=== PATIENT | male | born 1950 | race Caucasian/White ===

== ENCOUNTER 2020-07-19 09:29 | Day surgery (SDC) | payer OTHER, BC ==
[2020-07-17 15:33] VITALS: BMI 22.3
[2020-07-19] MEDS ORDERED: CARBACHOL 0.01% INTRA-OCULAR 1.5 ML VIAL ONE (09:39)
[2020-07-19] MEDS ORDERED: BSS (NA/CA/MG/K) BALANCED SALT SOLUTION OPHTH SOLN 15 ML BOTTLE ONE (09:39)
[2020-07-19] MEDS ORDERED: LIDOCAINE 1% P/F 10 MG/ML VIAL ONE (09:39)
[2020-07-19] MEDS ORDERED: NEO/POLYMYX B SULF/DEXAMETH OPHTHALMIC 5ML BOTTLE ONE (09:39)
[2020-07-19] MEDS ORDERED: TETRACAINE 0.5% OPHTH SOLN 2 ML BOTTLE ONE (09:39)
[2020-07-19] MEDS: CYCLOPENTOLATE 2% OPHTH SOLN 2 ML BOTTLE ONE ×3 (10:25→10:35)
[2020-07-19] MEDS: PHENYLEPHRINE 2.5% OPHTH SOLN 15 ML BOTTLE ONE ×3 (10:25→10:35)
[2020-07-19] MEDS: CIPROFLOXACIN 0.3% EYE DROPS 5 ML BOTTLE ONE ×3 (10:25→10:35)
[2020-07-19] MEDS: TROPICAMIDE 1% OPHTH SOLN 15 ML BOTTLE ONE ×3 (10:25→10:35)
[2020-07-19] MEDS ORDERED: TRYPAN BLUE 0.5 ML DISP.SYRIN ONE (11:23)
[2020-07-19] MEDS ORDERED: MIDAZOLAM HCL 2 MG/2 ML SINGLE DOSE VIAL ONE (11:35)
[2020-07-19 13:02] VITALS: TEMP 98.6
[2020-07-19 13:04] VITALS: BP 142/80; PULSE 78
== END 2020-07-19 12:55 | disposition home or self-care (01) ==
LOC: FASU 09:29
PROVIDERS: ATTEND Ophthalmology
PROC: 08NC3ZZ Release Right Iris, Percutaneous Approach (ICD-10-PCS; 2020-07-19)
PROC: 08RJ3JZ Replacement of Right Lens with Synthetic Substitute, Percutaneous Approach (ICD-10-PCS; principal; 2020-07-19 11:43)
DX: H26.9 Unspecified cataract (principal); H21.541 Posterior synechiae (iris), right eye
CPT/HCPCS: 65875; 66982; V2631

== ENCOUNTER 2023-09-04 13:59 | Inpatient (IN) | payer OTHER, BC ==
[2023-09-04] MEDS ORDERED: dilTIAZem HCL 50 MG/10 ML - 10 ML VIAL IVPUSH ONE (16:42)
[2023-09-04 17:07] LABS: BASO % 0.6 % (0-2.0); HEMOGLOBIN 10.6 GM/dL (11.7-16.9); MCH 30.3 pg (25.7-33.7); MCHC 33.2 g/dl (32.0-35.9); MEAN CELL VOLUME 91.5 fl (80-96); MEAN PLT VOLUME 7.1 fl (7.5-11.1); MONO % 7.9 % (3.8-10.2); NEUT % 77.5 % (42.8-82.8); PLATELET COUNT 276 10^3/uL (134-434); RDW 15.8 % (11.9-15.9); WHITE BLOOD COUNT 6.2 K/mm3 (4.0-10.0)
[2023-09-04] MEDS ORDERED: AMPICILLIN NA/SULBACTAM NA 3 GM VIAL ONE (17:18)
[2023-09-04] MEDS ORDERED: dilTIAZem HCL 125 MG/25 ML - 25 ML VIAL ONE (17:19)
[2023-09-04 17:32] LABS: INR 1.43 (0.83-1.09); PROTHROMBIN TIME (PATIENT) 16.5 SEC (9.7-13.0)
[2023-09-04 17:34] LABS: ACTIVATED PTT 24.9 SECONDS (25.2-36.5)
[2023-09-04 17:39] LABS: ALBUMIN 2.3 g/dl (3.4-5.0); CALCIUM 8.1 mg/dL (8.5-10.1)
[2023-09-04 17:40] LABS: BLOOD UREA NITROGEN 14.3 mg/dL (7-18)
[2023-09-04 17:42] LABS: CREATININE 1.1 mg/dL (0.55-1.3)
[2023-09-04 17:44] LABS: BILIRUBIN,TOTAL 0.3 mg/dL (0.2-1); TOT PROT 6.3 g/dl (6.4-8.2)
[2023-09-04] MEDS ORDERED: POTASSIUM CHLORIDE TABS 20 MEQ TABLET.ER (FP) PO ONE ×2 (17:46→18:06)
[2023-09-04] MEDS ORDERED: AMPICILLIN NA/SULBACTAM NA 3 GM in SODIUM CHLORIDE 100 ML IVPB ONE (18:00)
[2023-09-04] MEDS ORDERED: dilTIAZem HCL 60 MG TABLET ONE (18:06)
[2023-09-04] MEDS ORDERED: KCL 10 MEQ IVPB 30 MEQ/300 ML INFUS.BAG IVPB ONE (18:06)
[2023-09-04] MEDS ORDERED: POTASSIUM CHLORIDE ORAL LIQUID 20 MEQ/15 ML PO ONE (18:28)
[2023-09-04] MEDS ORDERED: POTASSIUM CHLORIDE ORAL LIQUID 20 MEQ/15 ML ONE (18:29)
[2023-09-04] MEDS: KCL 10 MEQ IVPB 10 MEQ/100 ML INFUS.BAG IVPB SCH ×2 (18:39→23:08)
[2023-09-04 19:33] LABS: PH,URINE 6.5 (5.0-8.0); URINE APPEARANCE CLEAR; URINE BILIRUBIN NEGATIVE (NEGATIVE); URINE COLOR YELLOW; URINE GLUCOSE (UA) NEGATIVE (NEGATIVE); URINE KETONE TRACE (NEGATIVE); URINE LEUK ESTERASE NEGATIVE (NEGATIVE); URINE NITRITE NEGATIVE (NEGATIVE); URINE PROTEIN TRACE (NEGATIVE)
[2023-09-04] MEDS ORDERED: dilTIAZem HCL 60 MG TABLET PO SCH (22:45)
[2023-09-04] MEDS ORDERED: dilTIAZem HCL 50 MG/10 ML - 10 ML VIAL IVPUSH PRN (22:45)
[2023-09-04] MEDS ORDERED: CARVEDILOL 3.125 MG TABLET (FP) PO SCH (23:00)
[2023-09-05] MEDS ORDERED: AMPICILLIN NA/SULBACTAM NA 3 GM in SODIUM CHLORIDE 100 ML IVPB SCH
[2023-09-05] MEDS: KCL 10 MEQ IVPB 10 MEQ/100 ML INFUS.BAG IVPB SCH (00:15)
[2023-09-05] MEDS: APIXABAN 5 MG TABLET PO SCH ×3 (00:58→21:27)
[2023-09-05 02:54] VITALS: BMI 22.3
[2023-09-05] MEDS: AMPICILLIN NA/SULBACTAM NA 3 GM in SODIUM CHLORIDE 100 ML IVPB SCH ×4 (03:34→21:26)
[2023-09-05 07:30] LABS: HEMATOCRIT 27.3 % (35.4-49); HEMOGLOBIN 9.1 GM/dL (11.7-16.9); MCH 30.9 pg (25.7-33.7); MCHC 33.5 g/dl (32.0-35.9); MEAN CELL VOLUME 92.3 fl (80-96); MEAN PLT VOLUME 7.7 fl (7.5-11.1); PLATELET COUNT 243 10^3/uL (134-434); RBC 2.95 M/mm3 (4.00-5.60); RDW 15.9 % (11.9-15.9); WHITE BLOOD COUNT 5.6 K/mm3 (4.0-10.0)
[2023-09-05 07:47] LABS: POTASSIUM 3.2 mmol/L (3.5-5.1)
[2023-09-05] MEDS ORDERED: POTASSIUM CHLORIDE ORAL LIQUID 20 MEQ/15 ML PO ONE (07:53)
[2023-09-05 08:19] LABS: CALCIUM 7.9 mg/dL (8.5-10.1)
[2023-09-05 08:20] LABS: ALBUMIN 1.9 g/dl (3.4-5.0); BLOOD UREA NITROGEN 10.8 mg/dL (7-18); MAGNESIUM 1.8 mg/dL (1.8-2.4)
[2023-09-05 08:21] LABS: CHOLESTEROL 110 mg/dL (50-200)
[2023-09-05 08:22] LABS: LDL CHOLESTEROL (ONLY SJRH) 64 mg/dL (5-100)
[2023-09-05 08:23] LABS: CREATININE 0.9 mg/dL (0.55-1.3); PHOSPHOROUS 2.3 mg/dL (2.5-4.9)
[2023-09-05 08:24] LABS: HDL CHOLESTEROL 36 mg/dL (40-60); TOT PROT 5.4 g/dl (6.4-8.2)
[2023-09-05 08:25] LABS: BILIRUBIN,TOTAL 0.3 mg/dL (0.2-1)
[2023-09-05] MEDS ORDERED: FUROSEMIDE 40 MG/4 ML INJECTABLE VIAL IVPUSH ONE (09:55)
[2023-09-05] MEDS ORDERED: dilTIAZem HCL 30 MG TABLET PO SCH (12:00)
[2023-09-05] MEDS: ROSUVASTATIN CA 10 MG TABLET PO SCH (21:27)
[2023-09-06] MEDS: AMPICILLIN NA/SULBACTAM NA 3 GM in SODIUM CHLORIDE 100 ML IVPB SCH ×4 (04:13→21:15)
[2023-09-06] MEDS ORDERED: METOPROLOL TARTRATE 5 MG/5 ML VIAL IVPUSH ONE (05:34)
[2023-09-06 07:26] LABS: BASO % 0.9 % (0-2.0); EOS % 4.8 % (0-4.5); HEMATOCRIT 28.1 % (35.4-49); HEMOGLOBIN 9.5 GM/dL (11.7-16.9); LYMPH % 12.2 % (8-40); MCH 31.1 pg (25.7-33.7); MCHC 33.7 g/dl (32.0-35.9); MEAN CELL VOLUME 92.2 fl (80-96); MEAN PLT VOLUME 7.5 fl (7.5-11.1); MONO % 11.2 % (3.8-10.2); NEUT % 70.9 % (42.8-82.8); PLATELET COUNT 257 10^3/uL (134-434); RBC 3.04 M/mm3 (4.00-5.60); WHITE BLOOD COUNT 6.6 K/mm3 (4.0-10.0)
[2023-09-06 07:35] LABS: POTASSIUM 3.2 mmol/L (3.5-5.1)
[2023-09-06 07:40] LABS: BLOOD UREA NITROGEN 17.2 mg/dL (7-18); CALCIUM 8.1 mg/dL (8.5-10.1); MAGNESIUM 1.7 mg/dL (1.8-2.4)
[2023-09-06 07:43] LABS: CREATININE 1.1 mg/dL (0.55-1.3); PHOSPHOROUS 2.7 mg/dL (2.5-4.9)
[2023-09-06 07:45] LABS: TOT PROT 5.4 g/dl (6.4-8.2)
[2023-09-06 08:26] LABS: BILIRUBIN,TOTAL 0.3 mg/dL (0.2-1)
[2023-09-06] MEDS: APIXABAN 5 MG TABLET PO SCH ×2 (09:33→21:16)
[2023-09-06] MEDS ORDERED: FUROSEMIDE 40 MG/4 ML INJECTABLE VIAL IVPUSH SCH (10:00)
[2023-09-06] MEDS ORDERED: metoPROLOL SUCCINATE 25 MG TAB.SR.24H (FP) PO ONE (11:15)
[2023-09-06] MEDS ORDERED: DIGOXIN 0.25 MG TABLET PO ONE (11:15)
[2023-09-06] MEDS: POLYETHYLENE GLYCOL (HEALTHYLAX) 3350 17 GM PACKET PO SCH ×2 (16:04→21:16)
[2023-09-06] MEDS: ROSUVASTATIN CA 10 MG TABLET PO SCH (21:16)
[2023-09-06] MEDS: DOCUSATE SODIUM 100 MG CAPSULE (FP) PO SCH (21:18)
[2023-09-07] MEDS: AMPICILLIN NA/SULBACTAM NA 3 GM in SODIUM CHLORIDE 100 ML IVPB SCH ×4 (03:37→21:33)
[2023-09-07 08:21] LABS: EOS % 5.6 % (0-4.5); HEMATOCRIT 29.6 % (35.4-49); LYMPH % 14.8 % (8-40); MCH 31.3 pg (25.7-33.7); MCHC 33.8 g/dl (32.0-35.9); MEAN CELL VOLUME 92.6 fl (80-96); MEAN PLT VOLUME 7.7 fl (7.5-11.1); MONO % 14.8 % (3.8-10.2); NEUT % 63.8 % (42.8-82.8); PLATELET COUNT 259 10^3/uL (134-434); RBC 3.19 M/mm3 (4.00-5.60); RDW 15.8 % (11.9-15.9)
[2023-09-07 08:36] LABS: POTASSIUM 3.3 mmol/L (3.5-5.1)
[2023-09-07 08:44] LABS: PHOSPHOROUS 2.8 mg/dL (2.5-4.9)
[2023-09-07 08:46] LABS: BLOOD UREA NITROGEN 13.3 mg/dL (7-18)
[2023-09-07 08:48] LABS: BILIRUBIN,TOTAL 0.3 mg/dL (0.2-1); CALCIUM 8.3 mg/dL (8.5-10.1); TOT PROT 5.6 g/dl (6.4-8.2)
[2023-09-07 08:49] LABS: MAGNESIUM 1.7 mg/dL (1.8-2.4)
[2023-09-07] MEDS ORDERED: DIGOXIN 0.125 MG TABLET PO SCH (10:00)
[2023-09-07] MEDS: APIXABAN 5 MG TABLET PO SCH ×2 (10:01→21:35)
[2023-09-07] MEDS: POLYETHYLENE GLYCOL (HEALTHYLAX) 3350 17 GM PACKET PO SCH ×2 (10:02→21:34)
[2023-09-07] MEDS ORDERED: POTASSIUM CHLORIDE ORAL LIQUID 20 MEQ/15 ML PO ONE (13:14)
[2023-09-07] MEDS ORDERED: MAGNESIUM SULF 50% (8.12 MEQ/2 ML-1 GM VIAL) IVPB ONE (14:45)
[2023-09-07] MEDS: DOCUSATE SODIUM 100 MG CAPSULE (FP) PO SCH (21:33)
[2023-09-07] MEDS: ROSUVASTATIN CA 10 MG TABLET PO SCH (21:34)
[2023-09-08] MEDS: AMPICILLIN NA/SULBACTAM NA 3 GM in SODIUM CHLORIDE 100 ML IVPB SCH ×4 (03:02→21:41)
[2023-09-08 07:43] LABS: POTASSIUM 3.5 mmol/L (3.5-5.1)
[2023-09-08 07:49] LABS: ALBUMIN 2.2 g/dl (3.4-5.0); BLOOD UREA NITROGEN 11.4 mg/dL (7-18); CALCIUM 8.6 mg/dL (8.5-10.1); MAGNESIUM 2.1 mg/dL (1.8-2.4)
[2023-09-08 07:52] LABS: PHOSPHOROUS 2.9 mg/dL (2.5-4.9)
[2023-09-08 07:54] LABS: BILIRUBIN,TOTAL 0.4 mg/dL (0.2-1); TOT PROT 5.9 g/dl (6.4-8.2)
[2023-09-08 07:58] LABS: HEMATOCRIT 30.5 % (35.4-49); HEMOGLOBIN 10.4 GM/dL (11.7-16.9); MCH 31.3 pg (25.7-33.7); MCHC 34.1 g/dl (32.0-35.9); MEAN CELL VOLUME 91.8 fl (80-96); MEAN PLT VOLUME 7.7 fl (7.5-11.1); PLATELET COUNT 270 10^3/uL (134-434); RBC 3.32 M/mm3 (4.00-5.60); RDW 15.8 % (11.9-15.9); WHITE BLOOD COUNT 8.2 K/mm3 (4.0-10.0)
[2023-09-08] MEDS ORDERED: POTASSIUM CHLORIDE ORAL LIQUID 20 MEQ/15 ML PO ONE (09:00)
[2023-09-08] MEDS: POLYETHYLENE GLYCOL (HEALTHYLAX) 3350 17 GM PACKET PO SCH (09:18)
[2023-09-08] MEDS: APIXABAN 5 MG TABLET PO SCH ×2 (09:19→21:42)
[2023-09-08] MEDS: ROSUVASTATIN CA 10 MG TABLET PO SCH (21:41)
[2023-09-09] MEDS: AMPICILLIN NA/SULBACTAM NA 3 GM in SODIUM CHLORIDE 100 ML IVPB SCH ×4 (04:50→21:12)
[2023-09-09 07:59] LABS: HEMATOCRIT 30.8 % (35.4-49); HEMOGLOBIN 10.6 GM/dL (11.7-16.9); MCH 32.1 pg (25.7-33.7); MCHC 34.3 g/dl (32.0-35.9); MEAN CELL VOLUME 93.4 fl (80-96); MEAN PLT VOLUME 7.7 fl (7.5-11.1); PLATELET COUNT 273 10^3/uL (134-434); RDW 16.8 % (11.9-15.9); WHITE BLOOD COUNT 10.2 K/mm3 (4.0-10.0)
[2023-09-09 08:22] LABS: POTASSIUM 3.6 mmol/L (3.5-5.1)
[2023-09-09 08:32] LABS: CALCIUM 8.3 mg/dL (8.5-10.1)
[2023-09-09 08:33] LABS: ALBUMIN 2.3 g/dl (3.4-5.0); BLOOD UREA NITROGEN 13.5 mg/dL (7-18)
[2023-09-09 08:38] LABS: BILIRUBIN,TOTAL 0.6 mg/dL (0.2-1)
[2023-09-09] MEDS: APIXABAN 5 MG TABLET PO SCH ×2 (09:41→21:12)
[2023-09-09] MEDS: FINASTERIDE 5 MG TABLET (FP) PO SCH (17:39)
[2023-09-09] MEDS: ROSUVASTATIN CA 10 MG TABLET PO SCH (21:12)
[2023-09-09] MEDS: TAMSULOSIN HCL 0.4 MG CAP PO SCH (21:12)
[2023-09-10] MEDS: AMPICILLIN NA/SULBACTAM NA 3 GM in SODIUM CHLORIDE 100 ML IVPB SCH ×4 (03:23→21:17)
[2023-09-10] MEDS ORDERED: TAMSULOSIN HCL 0.4 MG CAP PO SCH (07:00)
[2023-09-10 08:38] LABS: HEMATOCRIT 28.5 % (35.4-49); HEMOGLOBIN 9.7 GM/dL (11.7-16.9); MCH 31.4 pg (25.7-33.7); MEAN CELL VOLUME 92.5 fl (80-96); MEAN PLT VOLUME 7.7 fl (7.5-11.1); PLATELET COUNT 226 10^3/uL (134-434); RBC 3.08 M/mm3 (4.00-5.60); RDW 16.2 % (11.9-15.9)
[2023-09-10 08:49] LABS: POTASSIUM 3.4 mmol/L (3.5-5.1)
[2023-09-10 08:55] LABS: BLOOD UREA NITROGEN 15.7 mg/dL (7-18); CALCIUM 7.9 mg/dL (8.5-10.1)
[2023-09-10 08:57] LABS: CREATININE 1.1 mg/dL (0.55-1.3)
[2023-09-10 08:59] LABS: BILIRUBIN,TOTAL 0.4 mg/dL (0.2-1); TOT PROT 5.4 g/dl (6.4-8.2)
[2023-09-10] MEDS: FINASTERIDE 5 MG TABLET (FP) PO SCH (09:33)
[2023-09-10] MEDS: APIXABAN 5 MG TABLET PO SCH ×2 (09:33→21:22)
[2023-09-10] MEDS ORDERED: POTASSIUM CHLORIDE ORAL LIQUID 20 MEQ/15 ML PO ONE (13:44)
[2023-09-10] MEDS: TAMSULOSIN HCL 0.4 MG CAP PO SCH (21:22)
[2023-09-10] MEDS: ROSUVASTATIN CA 10 MG TABLET PO SCH (21:22)
[2023-09-11] MEDS: AMPICILLIN NA/SULBACTAM NA 3 GM in SODIUM CHLORIDE 100 ML IVPB SCH ×3 (03:20→15:08)
[2023-09-11 07:39] LABS: HEMATOCRIT 27.8 % (35.4-49); HEMOGLOBIN 9.4 GM/dL (11.7-16.9); MCH 31.2 pg (25.7-33.7); MCHC 33.9 g/dl (32.0-35.9); MEAN PLT VOLUME 7.7 fl (7.5-11.1); PLATELET COUNT 207 10^3/uL (134-434); RBC 3.03 M/mm3 (4.00-5.60); RDW 16.4 % (11.9-15.9); WHITE BLOOD COUNT 7.9 K/mm3 (4.0-10.0)
[2023-09-11 07:59] LABS: POTASSIUM 3.5 mmol/L (3.5-5.1)
[2023-09-11 08:08] LABS: BLOOD UREA NITROGEN 15.3 mg/dL (7-18); CALCIUM 8.1 mg/dL (8.5-10.1)
[2023-09-11] MEDS: APIXABAN 5 MG TABLET PO SCH (09:34)
[2023-09-11] MEDS: FINASTERIDE 5 MG TABLET (FP) PO SCH (09:34)
[2023-09-11 09:37] VITALS: TEMP 98.4
[2023-09-11 13:59] VITALS: BP 128/74; PULSE 93; RESP 20
[2023-09-11] MEDS ORDERED: POTASSIUM CHLORIDE ORAL LIQUID 20 MEQ/15 ML PO ONE (15:10)
== END 2023-09-11 16:34 | disposition home health service (06) | DRG 308 ==
LOC: JER 13:59 → JERBED 18:34 → OBSVTOIN 20:11 → JERBED 21:11 → J4W 21:20
PROVIDERS: ADMIT Internal Medicine; ATTEND Internal Medicine
DX: I48.0 Paroxysmal atrial fibrillation (principal); I50.23 Acute on chronic systolic (congestive) heart failure; J18.9 Pneumonia, unspecified organism; I24.89 Other forms of acute ischemic heart disease; I25.10 Atherosclerotic heart disease of native coronary artery without angina pectoris; I11.0 Hypertensive heart disease with heart failure; I42.9 Cardiomyopathy, unspecified; E78.5 Hyperlipidemia, unspecified; R33.9 Retention of urine, unspecified; E87.6 Hypokalemia; E83.42 Hypomagnesemia; L08.9 Local infection of the skin and subcutaneous tissue, unspecified; Z95.5 Presence of coronary angioplasty implant and graft; I42.8 Other cardiomyopathies
CPT/HCPCS: 0241U-QW; 36415; 71045-TC-FY; 80048; 80053; 80061; 80162; 81003; 82272; 82728; 83735; 83880; 84100; 84443; 84484; 85025; 85027; 85610; 85730; 87086; 93005; 93010; 93306-TC; 97116-GP; 97162-GP; 99285-25; G0378

== ENCOUNTER 2024-01-01 14:30 | Emergency (ER) | payer OTHER, BC ==
[2024-01-01 14:40] VITALS: BP 158/77; PULSE 82; RESP 17; TEMP 97.9; BMI 22.5
[2024-01-01 16:00] LABS: BASO % 0.7 % (0-2.0); EOS % 2.6 % (0-4.5); HEMOGLOBIN 12.1 GM/dL (11.7-16.9); LYMPH % 10.6 % (8-40); MCH 30.9 pg (25.7-33.7); MCHC 33.6 g/dl (32.0-35.9); MEAN CELL VOLUME 91.9 fl (80-96); MEAN PLT VOLUME 7.5 fl (7.5-11.1); MONO % 16.5 % (3.8-10.2); NEUT % 69.6 % (42.8-82.8); PLATELET COUNT 139 10^3/uL (134-434); RBC 3.91 M/mm3 (4.00-5.60); RDW 15.5 % (11.9-15.9); WHITE BLOOD COUNT 6.8 K/mm3 (4.0-10.0)
[2024-01-01 16:07] LABS: INR 1.18 (0.83-1.09); PROTHROMBIN TIME (PATIENT) 13.5 SEC (9.7-13.0)
[2024-01-01 16:10] LABS: ACTIVATED PTT 30.9 SECONDS (25.2-36.5)
[2024-01-01 16:19] LABS: POTASSIUM 4.3 mmol/L (3.5-5.1)
[2024-01-01 16:21] LABS: BLOOD UREA NITROGEN 30.8 mg/dL (7-18); MAGNESIUM 2.2 mg/dL (1.8-2.4)
[2024-01-01 16:22] LABS: ALBUMIN 3.5 g/dl (3.4-5.0)
[2024-01-01 16:24] LABS: CALCIUM 9.5 mg/dL (8.5-10.1); PHOSPHOROUS 3.6 mg/dL (2.5-4.9)
[2024-01-01 16:25] LABS: CREATININE 1.3 mg/dL (0.55-1.3)
[2024-01-01 16:26] LABS: BILIRUBIN,TOTAL 0.3 mg/dL (0.2-1); TOT PROT 7.8 g/dl (6.4-8.2)
[2024-01-01] MEDS: LACTATED RINGERS SOLUTION 1000 ML INFUS.BAG IV ONE (17:29)
== END 2024-01-01 21:10 | disposition home or self-care (01) ==
LOC: JER 14:30
DX: T82.838A Hemorrhage due to vascular prosthetic devices, implants and grafts, initial encounter (principal); M79.89 Other specified soft tissue disorders
CPT/HCPCS: 36415; 75635-TC; 80053; 83735; 84100; 84484; 85025; 85610; 85730; 86850; 86900; 86901; 87040; 93005; 93010; 99285-25; Q9967